=== PATIENT | male | born 1980 | race Two or more races ===

== ENCOUNTER 2022-12-16 07:20 | Emergency (ER) | payer SELFPAY ==
[~2022-12-16] VITALS: Ht 170.2 cm; Wt 81.0 kg
[2022-12-16 07:57] VITALS: PULSE 88; RESP 19; O2SAT 97
[2022-12-16] MEDS ORDERED: ACETAMINOPHEN 500 MG TAB PO ONE (08:00)
[2022-12-16 08:24] VITALS: BP 151/88; PULSE 75; RESP 16; O2SAT 98
[2022-12-16] MEDS ORDERED: LIDOCAINE 1% HCL (LOCAL ANESTH.) INJ 20ML MDV IJ ONE (08:30)
[2022-12-16] MEDS ORDERED: TETANUS-DIPTH-ACEL PERTUSSIS 0.5ML SYR Tdap IM ONE (09:00)
[2022-12-16] MEDS ORDERED: IBUP-1456 PO (09:18)
[2022-12-16] MEDS ORDERED: CEPH500C PO (09:18)
== END 2022-12-16 09:29 | disposition home or self-care (01) ==
LOC: EDBD 07:20 → ER 07:20
DX: S02.2XXA Fracture of nasal bones, initial encounter for closed fracture (principal); S01.81XA Laceration without foreign body of other part of head, initial encounter; S29.011A Strain of muscle and tendon of front wall of thorax, initial encounter; V49.88XA Car occupant (driver) (passenger) injured in other specified transport accidents, initial encounter; Y93.89 Activity, other specified; Y92.411 Interstate highway as the place of occurrence of the external cause; Y99.8 Other external cause status
CPT/HCPCS: 12014; 70160; 71046; 90471; 90715; 99284; J2001